=== PATIENT | male | born 1945 ===

== ENCOUNTER 2020-05-02 21:44 | Observation (INO) | payer OTHER, MEDICARE ==
[~2020-05-02] VITALS: Ht 172.7 cm; Wt 99.8 kg
[~2020-05-02 21:44] MED LIST: ALBU90OI INH; ASPI81CH PO; ATOR10 PO; CEPH250A PO; CHOL10002; CYCL10 PO; DIGO.125 PO; FISH1000 PO; FURO20 PO; GABA300 PO; HYDACE5 PO; LISI5 PO; LORA10ER; LOSHYD PO; MAGOXI400 PO; METO25 PO; NAPR250 PO; OMEP40CA12 PO; OXYC5 PO; RANI150 PO; SERT25 PO; Sen-O-Tab8.6 MG PO; TRAM50 PO; VENL150ER PO; VENL75; WARF5 PO; ZOLP5 PO
[2020-05-03 01:23] LABS: BASOPHILS ABSOLUTE AUTO 0.03 K/mm3 (0.00-0.23); BASOPHILS PERCENT AUTO 0 % (0-2); EOSINOPHILS ABSOLUTE AUTO 0.21 K/mm3 (0.00-0.68); EOSINOPHILS PERCENT AUTO 3 % (0-6); Hematocrit 42.9 % (37.0-53.0); Hemoglobin 13.3 g/dL (13.5-17.5); IMMATURE GRAN ABSOLUTE AUTO 0.01 K/mm3 (0.00-0.10); IMMATURE GRAN PERCENT AUTO 0 % (0-1); LYMPHOCYTES ABSOLUTE AUTO 2.18 K/mm3 (0.84-5.20); LYMPHOCYTES PERCENT AUTO 31 % (21-46); MONOCYTES ABSOLUTE AUTO 0.47 K/mm3 (0.16-1.47); MONOCYTES PERCENT AUTO 7 % (4-13); Mean Corpuscular HGB 26.3 pg (26.0-34.0); Mean Corpuscular Volume 85 fL (80-100); Mean Platelet Volume 11.4 fL (9.1-12.4); NEUTROPHILS ABSOLUTE AUTO 4.15 K/mm3 (1.96-9.15); NEUTROPHILS PERCENT AUTO 59 % (41-73); Platelet Count 195 K/mm3 (150-400); RDW Coefficient Variation 15.3 % (11.7-14.2); RDW Standard Deviation 47.4 fL (35.1-46.3); Red Blood Cell Count 5.06 M/mm3 (4.30-5.90); White Blood Cell Count 7.05 K/mm3 (4.00-11.30)
[2020-05-03 01:43] LABS: International Normalized Ratio 1.12; Prothrombin Time Results 11.9 Sec (9.7-11.5)
[2020-05-03 01:56] LABS: Alanine Aminotransfer (ALT/SGP 15 U/L (12-78); Albumin, Blood 2.9 g/dL (3.4-5.0); Albumin/Globulin Ratio 0.6 (0.8-1.8); Alk Phos 70 U/L (50-136); Anion Gap 5 mmol/L (6-16); Aspartate Aminotrans (AST/SGOT 22 U/L (12-37); Bilirubin, Total 0.4 mg/dL (0.1-1.0); Blood Urea Nitrogen 13 mg/dL (8-24); Bun/Creatinine Ratio 17.4 (12.0-20.0); CO2, Blood 28 mmol/L (21-32); Chloride, Blood 108 mmol/L (98-108); Creatinine, Blood 0.75 mg/dL (0.60-1.20); Digoxin (Lanoxin) 0.07 ug/mL (0.80-2.00); Globulin, Blood 4.7 g/dL (2.2-4.0); Glomerular Filtration Rate >60 (60-); Glucose, Blood 101 mg/dL (70-99); Potassium, Blood 3.5 mmol/L (3.5-5.5); Sodium, Blood 141 mmol/L (136-145); Total Protein, Blood 7.6 g/dL (6.4-8.2)
== END 2020-05-03 06:01 | disposition left against medical advice (07) ==
LOC: ER 21:44 → SURS 21:45
PROVIDERS: Emergency Medicine; ADMIT Family Medicine
DX: S73.005A Unspecified dislocation of left hip, initial encounter (principal); I10 Essential (primary) hypertension; I25.10 Atherosclerotic heart disease of native coronary artery without angina pectoris; E78.5 Hyperlipidemia, unspecified; J45.909 Unspecified asthma, uncomplicated; E11.9 Type 2 diabetes mellitus without complications; E78.00 Pure hypercholesterolemia, unspecified; F43.10 Post-traumatic stress disorder, unspecified; F17.210 Nicotine dependence, cigarettes, uncomplicated; D64.89 Other specified anemias; Z53.29 Procedure and treatment not carried out because of patient's decision for other reasons; Z91.14 Patient's other noncompliance with medication regimen; Z79.01 Long term (current) use of anticoagulants; Z79.899 Other long term (current) drug therapy; Z95.0 Presence of cardiac pacemaker; Z96.641 Presence of right artificial hip joint; Z79.82 Long term (current) use of aspirin; Z95.1 Presence of aortocoronary bypass graft; Z90.49 Acquired absence of other specified parts of digestive tract; X58.XXXA Exposure to other specified factors, initial encounter
CPT/HCPCS: 27265; 73502; 80053; 80162; 85025; 85610; 93005; 93010; 96374-59; 99284-25; J2704; J3010; J7030

== ENCOUNTER 2020-08-24 06:48 | Inpatient (IN) | payer OTHER, MEDICARE ==
[~2020-08-24] VITALS: Ht 170.2 cm; Wt 99.8 kg
[2020-08-24] MEDS ORDERED: ASPI81CH PO (06:59)
[2020-08-24 07:19] LABS: BASOPHILS ABSOLUTE AUTO 0.04 K/mm3 (0.00-0.23); BASOPHILS PERCENT AUTO 1 % (0-2); EOSINOPHILS ABSOLUTE AUTO 0.44 K/mm3 (0.00-0.68); EOSINOPHILS PERCENT AUTO 7 % (0-6); Hematocrit 45.5 % (37.0-53.0); Hemoglobin 14.3 g/dL (13.5-17.5); IMMATURE GRAN ABSOLUTE AUTO 0.01 K/mm3 (0.00-0.10); IMMATURE GRAN PERCENT AUTO 0 % (0-1); LYMPHOCYTES ABSOLUTE AUTO 1.73 K/mm3 (0.84-5.20); LYMPHOCYTES PERCENT AUTO 29 % (21-46); MONOCYTES ABSOLUTE AUTO 0.42 K/mm3 (0.16-1.47); MONOCYTES PERCENT AUTO 7 % (4-13); Mean Corpuscular HGB 26.4 pg (26.0-34.0); Mean Corpuscular HGB Conc 31.4 g/dL (31.5-36.5); Mean Corpuscular Volume 84 fL (80-100); Mean Platelet Volume 11.6 fL (9.1-12.4); NEUTROPHILS ABSOLUTE AUTO 3.28 K/mm3 (1.96-9.15); NEUTROPHILS PERCENT AUTO 55 % (41-73); Platelet Count 166 K/mm3 (150-400); RDW Coefficient Variation 15.4 % (11.7-14.2); RDW Standard Deviation 46.7 fL (35.1-46.3); Red Blood Cell Count 5.41 M/mm3 (4.30-5.90); White Blood Cell Count 5.92 K/mm3 (4.00-11.30)
[2020-08-24] MEDS ORDERED: LOSA50 PO (07:38)
[2020-08-24] MEDS ORDERED: VENL75ER PO (07:39)
[2020-08-24 07:43] LABS: Alanine Aminotransfer (ALT/SGP 22 U/L (12-78); Albumin, Blood 3.1 g/dL (3.4-5.0); Albumin/Globulin Ratio 0.6 (0.8-1.8); Alk Phos 80 U/L (50-136); Anion Gap 6 mmol/L (6-16); Aspartate Aminotrans (AST/SGOT 27 U/L (12-37); Bilirubin, Total 0.3 mg/dL (0.1-1.0); Blood Urea Nitrogen 22 mg/dL (8-24); CO2, Blood 25 mmol/L (21-32); Calcium, Blood 9.8 mg/dL (8.5-10.1); Chloride, Blood 107 mmol/L (98-108); Creatinine, Blood 0.88 mg/dL (0.60-1.20); Globulin, Blood 5.2 g/dL (2.2-4.0); Glomerular Filtration Rate >60 (60-); Glucose, Blood 132 mg/dL (70-99); Sodium, Blood 138 mmol/L (136-145); Total Protein, Blood 8.3 g/dL (6.4-8.2); Troponin I 0.124 ng/mL (0.000-0.040)
[2020-08-24 09:46] LABS: Influenza A, PCR NEGATIVE (NEGATIVE); Influenza B, PCR NEGATIVE (NEGATIVE); Resp Syncytial Virus, PCR NEGATIVE (NEGATIVE); SARS-Cov-2 (COVID-19) PCR, MMC NEGATIVE (NEGATIVE)
[2020-08-24] MEDS ORDERED: XARELTO20 MG PO (10:16)
[2020-08-24] MEDS ORDERED: MELA3 PO (10:18)
[2020-08-24] MEDS ORDERED: Crestor40 MG PO (10:18)
[2020-08-24] MEDS ORDERED: HYDROCODONE-AC1 EA11 PO (10:20)
--- NOTE | 2020-08-24 16:00 | NUR ---
PT ARRIVED TO ICU 1 FROM PRIVATE DUTY NURSE. PT IS A/O X4. HAS TO REMAIN FLAT DUE TO R FEMORAL ACCESS SITE. THERE IS A NAIMA DRESSING IN PLACE WITH CLEAR TEGADERM INTACT. SMALL DROP OF BLOOD ON DRESSING BUT IS CONTAINED AND HAS NOT GROWN IN SIZE. PT INSTRUCTED TO LAY FLAT WITHOUT FLEXION ON HIPS OR NECK. PT IS COMPLIANT. NO SIGN OF DISTRESS.
--- NOTE | 2020-08-24 16:59 | NUR ---
Echocardiogram completed.
--- NOTE | 2020-08-24 18:17 | NUR ---
PT ARRIVED FROM [facility]PERVISOR [employer]IC AT 1600. HAS R FEMORAL ACCESS SITE. SITE IS STABLE. CONTINUE TO REINFORCE TO NOT LIFT HEAD OR FLEX GROIN. DR. MATA CAME BY TO SEE PT AND STATES HE IS GETTING AN AICD AT 0700 TOMORROW. TO BE NPO AFTER MIDNIGHT AND NO BLOOD THINNERS. PT CONSENTED WITH DR. MATA. NO DISTRESS SINCE ARRIVING TO ICU AND NO V-TACH NOTED. CALL LIGHT IN REACH.
--- NOTE | 2020-08-24 18:53 | NUR ---
PT C/O PAIN IN L HIP THAT IS CHRONIC FROM HIP REPLACEMENT. ASKING FOR SOME SORT OF TRACTION DEVICE. WHEN EXPLAINING THAT THERE IS NOTHING LIKE THAT HERE PT BECOMES ANGRY AND STATES PHYSICAL THERAPY DOES. EDUCATED PT THAT THERE ARE NO PHYSICAL THERAPISTS HERE RIGHT NOW AND IT IS NOT POSSIBLE TO GET A DEVICE LIKE THAT. TRIED TO ASSIST PT WITH A BOOST IN BED BUT PT SITS UP IN BED AND SCOOTS SELF UP IN BED DESPITE EDUCATING PT THAT HE IS NOT SUPPOSED TO DO THAT WITH A FEMORAL GROIN ACCESS SITE. EDUCATED PT THAT PT CAN BLEED OUT IN MINUTES IF THAT ARTERY STARTS BLEEDING. PT STATES " I DON'T CARE". WILL NOT LAY FLAT OR FOLLOW DIRECTION TO KEEP STILL TO PREVENT FLEXION. PT IS GOING TO DO WHAT HE WANTS TO DO. PT ALSO STATES THAT IF HE WANTS TO GET UP AND WALK HE WILL DO THAT WELL. CALLED DR. MATA AND GOT AN ORDER FOR FENTANYL. FENTANYL GIVEN BUT PT IS STILL NON COMPLIANT WITH FLEXING GROIN OR SITTING UP IN BED. SITE IS STABLE AT THE MOMENT.
--- NOTE | 2020-08-24 19:35 | NUR ---
ASSUMPTION OF CARE RECEIVED REPORT FROM KARMEN LUND. ASSUMED CARE OF PATIENT. PATIENT SITTING UP AND LEANING OVER SIDE OF BED. EDUCATED PATIENT REGARDING LAYING FLAT STILL A LITTLE LONGER. PATIENT AGREED. ASSESSED RIGHT GROIN SITE, SOFT, NO BLEEDING, DRESSING INTACT. PATIENT A/O, VITAL STABE, CALL LIGHT IN REACH. WILL REVIEW ORDERS AND TREAT PRESCRIBED.
--- NOTE | 2020-08-25 07:28 | NUR ---
SHIFT SUMMARY PT WAS COOPERATIVE WITH CARE AT START OF SHIFT. PT STATED WANTING TO LEAVE AND GO OUTSIDE, PT WAS EDUCATED ABOUT THE HOSPITAL POLICY BEING UNABLE TO LEAVE THE HOSPITAL. PT BECAME INCREASINGLY UPSET STATING HE HAD PTSD AND NEEDED TO GO OUTSIDE. AROUND 0000 PT STATED HE WAS LEAVING AND WAS NOT GOING TO STAY AT THE HOSPITAL. HE STATED CALLING HIS TO COME PICK HIM UP. PT WAS EDUCATED ABOUT LEAVING AMA AND THE DANGERS. PT WAS REFUSING CARE AND PULLED OFF ALL MONITORS, PT WAS ADAMANT ABOUT REFUSING CARE, I WAS UNABLE TO OBTAIN ANY VITALS ON PT UNTIL AM. CALLED DR MATA AND HE CAME IN AND SPOKE WITH THE PT THIS AM AND PT WAS THEN AGREEABLE TO CARE AND UP COMING PROCEDURE. PT WAS UP AND WALKING AROUND ROOM ALL NIGHT. R GROIN SITE HAD NO PAIN, SWELLING, OR NEW DRAINAGE. OBTAINED VITALED WERE STABLE.
--- NOTE | 2020-08-25 10:00 | NUR ---
Patient back from labeling associate post ICD. Pressure dressing intact and no swelling. Patient alert and oriented on RA and sats >90%. I warmed his breakfast and he ate 100%. VSS continue to be stable.. Patient very thankful for his care. I also got him rootbeer and tolerated well. Right groin site C/D/I and no swelling or pain, clear op site
--- NOTE | 2020-08-25 12:00 | NUR ---
Patient resting after lunch which he ate 100%. Pressure dressing left upper chest intact. Right groin site C/D/I with clear op dressing, no swelling or pain at site. VSS, See EMR. Pulled am meds late and he took with lunch. Patient very thanksful for care. He asked about plan and stated 24 hours Abx and monitoring and home in am.
--- NOTE | 2020-08-25 14:25 | NUR ---
Patient wants to go home and i called Venkat Gaviria, Dr Turk, Dr Tena. They want me to talk with him and tell him the benifets of staying as i have several times, and he continues to sate they are just keeping me here for the money. Dr Turk came and saw patient and took pressure dressing and we applied a sling as ordered. Patient called for ride.He signed AMA paper work after reading to him. PCT is getting him ready for taking him out. He understands that Dr Tena wants continued monitoring and 24 hours of Abx. He still refuses to stay. I gave him Dr Sullivan pacecer discharge instructions and reviewed. He also stated that he will follow up with [facility] for psot pacer and wound check. [facility] office will foloow up per note on chart when returning from [facility].
--- NOTE | 2020-08-25 15:04 | NUR ---
Patient came to room and picked up patient. he was taken out in wheel chair and explained to about him not using left arm and to look at right groin side to see if he has any blood when get home and instructions if there is. Assisted into car and he went home POV
== END 2020-08-25 14:45 | disposition left against medical advice (07) | DRG 225 ==
LOC: ER 06:48 → ERHOLD 06:49 → ICUE 06:49
PROVIDERS: Emergency Medicine; ADMIT Internal Medicine
PROC: B2111ZZ Fluoroscopy of Multiple Coronary Arteries using Low Osmolar Contrast (ICD-10-PCS; 2020-08-24)
PROC: B3101ZZ Fluoroscopy of Thoracic Aorta using Low Osmolar Contrast (ICD-10-PCS; 2020-08-24)
PROC: B2131ZZ Fluoroscopy of Multiple Coronary Artery Bypass Grafts using Low Osmolar Contrast (ICD-10-PCS; 2020-08-24)
PROC: 4A023N7 Measurement of Cardiac Sampling and Pressure, Left Heart, Percutaneous Approach (ICD-10-PCS; 2020-08-24)
PROC: 02HK3KZ Insertion of Defibrillator Lead into Right Ventricle, Percutaneous Approach (ICD-10-PCS; principal; 2020-08-25)
PROC: 0JH609Z Insertion of Cardiac Resynchronization Defibrillator Pulse Generator into Chest Subcutaneous Tissue and Fascia, Open Approach (ICD-10-PCS; 2020-08-25)
PROC: 0JPT0PZ Removal of Cardiac Rhythm Related Device from Trunk Subcutaneous Tissue and Fascia, Open Approach (ICD-10-PCS; 2020-08-25)
PROC: 3E02340 Introduction of Influenza Vaccine into Muscle, Percutaneous Approach (ICD-10-PCS; 2020-08-25)
DX: I47.2 Ventricular tachycardia (principal); I25.10 Atherosclerotic heart disease of native coronary artery without angina pectoris; E78.5 Hyperlipidemia, unspecified; F43.10 Post-traumatic stress disorder, unspecified; Z95.1 Presence of aortocoronary bypass graft; F17.210 Nicotine dependence, cigarettes, uncomplicated; E66.3 Overweight; Z68.34 Body mass index [BMI] 34.0-34.9, adult; Z96.641 Presence of right artificial hip joint; M19.90 Unspecified osteoarthritis, unspecified site; G89.4 Chronic pain syndrome; F43.12 Post-traumatic stress disorder, chronic; Z20.822 Contact with and (suspected) exposure to COVID-19; Z23 Encounter for immunization
CPT/HCPCS: 0241U; 33233; 33249; 36415; 71045; 76937; 80053; 83690; 83735; 83880; 84443; 84484; 85025; 93005; 93010; 93306; 93459; 93567; 96376; 99152; 99153; 99285-25; A9270; C1721; C1769; C1781; C1894; C1895; G0378; J0690; J1644; J2250; J2270; J3010; J7030; J7040; J7050; Q2038; Q9967

== ENCOUNTER 2020-10-15 00:43 | Emergency (ER) | payer OTHER, MEDICARE ==
[~2020-10-15] VITALS: Ht 170.2 cm; Wt 99.8 kg
[~2020-10-15 00:43] MED LIST changes: +Crestor40 MG PO; +HYDROCODONE-AC1 EA11 PO; +LOSA50 PO; +MELA3 PO; +VENL75ER PO; +XARELTO20 MG PO
== END 2020-10-15 01:30 | disposition home or self-care (01) ==
LOC: ER 00:43
DX: M25.552 Pain in left hip (principal)
CPT/HCPCS: 99283; A9270

== ENCOUNTER 2020-10-15 12:41 | Emergency (ER) | payer OTHER, MEDICARE ==
[~2020-10-15] VITALS: Ht 170.2 cm; Wt 99.8 kg
== END 2020-10-15 16:58 | disposition home or self-care (01) ==
LOC: ER 12:41
DX: S73.005A Unspecified dislocation of left hip, initial encounter (principal); I25.810 Atherosclerosis of coronary artery bypass graft(s) without angina pectoris; E78.5 Hyperlipidemia, unspecified; I10 Essential (primary) hypertension; J45.909 Unspecified asthma, uncomplicated; Z95.1 Presence of aortocoronary bypass graft; Z79.01 Long term (current) use of anticoagulants; Z79.899 Other long term (current) drug therapy; W22.03XA Walked into furniture, initial encounter
CPT/HCPCS: 27266; 73501; 73502; 99283-25; J2704; J3010; J7030

== ENCOUNTER 2021-11-23 08:00 | Emergency (ER) | payer OTHER ==
[~2021-11-23] VITALS: Ht 172.7 cm; Wt 83.9 kg
[2021-11-23] MEDS ORDERED: Norco 5-325 Ta1 EACH PO (11:32)
== END 2021-11-23 12:44 | disposition home or self-care (01) ==
LOC: ER 08:00
DX: T84.021A Dislocation of internal left hip prosthesis, initial encounter (principal); Y79.2 Prosthetic and other implants, materials and accessory orthopedic devices associated with adverse incidents; I25.10 Atherosclerotic heart disease of native coronary artery without angina pectoris; I10 Essential (primary) hypertension; J45.909 Unspecified asthma, uncomplicated; E11.9 Type 2 diabetes mellitus without complications; F17.210 Nicotine dependence, cigarettes, uncomplicated; Z96.643 Presence of artificial hip joint, bilateral; Z95.0 Presence of cardiac pacemaker; Z95.1 Presence of aortocoronary bypass graft
CPT/HCPCS: 73501; 73502; J2704; J3010; J7030

== ENCOUNTER 2022-01-03 15:41 | Emergency (ER) | payer OTHER ==
[~2022-01-03] VITALS: Ht 170.2 cm; Wt 99.8 kg
[~2022-01-03 15:41] MED LIST changes: +Norco 5-325 Ta1 EACH PO
[2022-01-03] MEDS ORDERED: Norco 5-325 Ta1 EACH PO (22:04)
== END 2022-01-03 22:25 | disposition home or self-care (01) ==
LOC: ER 15:41
DX: T84.021A Dislocation of internal left hip prosthesis, initial encounter (principal); I25.10 Atherosclerotic heart disease of native coronary artery without angina pectoris; I10 Essential (primary) hypertension; E78.5 Hyperlipidemia, unspecified; J45.909 Unspecified asthma, uncomplicated; E11.9 Type 2 diabetes mellitus without complications; Z95.0 Presence of cardiac pacemaker; F17.210 Nicotine dependence, cigarettes, uncomplicated; Z95.1 Presence of aortocoronary bypass graft; X58.XXXA Exposure to other specified factors, initial encounter
CPT/HCPCS: 73502; J1885; J2704; J7030

== ENCOUNTER 2022-06-11 16:44 | Emergency (ER) | payer OTHER | END 2022-06-11 23:00 | disposition home or self-care (01) | DX: T84.021A Dislocation of internal left hip prosthesis, initial encounter (principal); Y79.8 Miscellaneous orthopedic devices associated with adverse incidents, not elsewhere classified; I25.10 Atherosclerotic heart disease of native coronary artery without angina pectoris; I10 Essential (primary) hypertension; J45.909 Unspecified asthma, uncomplicated; E11.9 Type 2 diabetes mellitus without complications; F17.210 Nicotine dependence, cigarettes, uncomplicated; Z96.643 Presence of artificial hip joint, bilateral; Z95.1 Presence of aortocoronary bypass graft; Z95.0 Presence of cardiac pacemaker ==

== ENCOUNTER 2022-10-20 08:57 | Inpatient (IN) | payer OTHER ==
[~2022-10-20] VITALS: Ht 167.6 cm; Wt 52.1 kg
[2022-10-20] MEDS ORDERED: VENL25 PO (09:18)
[2022-10-20 10:14] LABS: BASOPHILS ABSOLUTE AUTO 0.03 K/mm3 (0.00-0.23); BASOPHILS PERCENT AUTO 0 % (0-2); EOSINOPHILS PERCENT AUTO 0 % (0-6); Hemoglobin 20.4 g/dL (13.5-17.5); IMMATURE GRAN ABSOLUTE AUTO 0.07 K/mm3 (0.00-0.10); IMMATURE GRAN PERCENT AUTO 1 % (0-1); LYMPHOCYTES ABSOLUTE AUTO 0.99 K/mm3 (0.84-5.20); LYMPHOCYTES PERCENT AUTO 7 % (21-46); MONOCYTES ABSOLUTE AUTO 0.34 K/mm3 (0.16-1.47); MONOCYTES PERCENT AUTO 2 % (4-13); Mean Corpuscular HGB 28.2 pg (26.0-34.0); Mean Corpuscular Volume 83 fL (80-100); Mean Platelet Volume 11.6 fL (9.1-12.4); NEUTROPHILS ABSOLUTE AUTO 12.71 K/mm3 (1.96-9.15); NEUTROPHILS PERCENT AUTO 90 % (41-73); Platelet Count 201 K/mm3 (150-400); RDW Coefficient Variation 16.7 % (11.7-14.2); RDW Standard Deviation 42.5 fL (35.1-46.3); Red Blood Cell Count 7.23 M/mm3 (4.30-5.90); White Blood Cell Count 14.14 K/mm3 (4.00-11.30)
[2022-10-20 10:21] LABS: Albumin, Blood 4.4 g/dL (3.4-5.0); Albumin/Globulin Ratio 0.6 (0.8-1.8); Bilirubin, Total 1.9 mg/dL (0.1-1.0); Bun/Creatinine Ratio 52.5 (12.0-20.0); Calcium, Blood 10.8 mg/dL (8.5-10.1); Creatinine, Blood 2.44 mg/dL (0.60-1.20); Globulin, Blood 6.9 g/dL (2.2-4.0); Potassium, Blood 4.5 mmol/L (3.5-5.5); Total Protein, Blood 11.3 g/dL (6.4-8.2)
[2022-10-20 14:00] VITALS: BP 139/88
[2022-10-20 15:33] LABS: Bun/Creatinine Ratio 60.4 (12.0-20.0); Calcium, Blood 10.1 mg/dL (8.5-10.1); Creatinine, Blood 2.22 mg/dL (0.60-1.20)
--- NOTE | 2022-10-20 15:40 | NUR ---
ADMISSION NOTE: PT IS A POOR HISTORIAN. SASCHA ALEJANDRE, KEVON ATTEMPTED TO CALL AND BOTH NUMBERS DID NOT GO THROUGH. TRANSIT PLANNING MANAGER TRYING TO FIND CORRECT NUMBER FOR . SPEECH THERAPY CONSULTED WITH PATIENT. SPIRITUAL CARE ROUNDED ON PATIENT.IV FLUIDS STARTED. SPEECH THERAPY ORDERED A PUREE DIET, PT UNABLE TO KEEP ANYTHING DOWN, REGURGITATES ALL. PT DENIES NAUSEA/ABD PN. PT STATED NO DIFFICULTIES WHEN URINATING OR HAVING BOWEL MOVEMENTS. PT ON ROOM AIR. LUNGS SOUND CLEAR WITH FINE EXPIRATORY WHEEZES. TELE SHOWING SR WITH HR 70-80'S. BP STABLE. PERIPHERAL PULSES STRONG AND PRESENT. PT APPEARS CACHECTIC. BED ALARM ON, CALL LIGHT WITHIN REACH. PT CALM AND LAYING IN BED WATCHING TV.
[2022-10-20 16:12] VITALS: BP 130/85
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
--- NOTE | 2022-10-20 18:32 | NUR ---
END OF SHIFT NOTE: NO ACUTE CHANGES. SEE PREVIOUS NOTE FOR UPDATE. VITAL SIGNS REMAIN STABLE. NORMAL SALINE INFUSING PER EMAR. REMAINS ON RA. TELE CONTINUES TO SHOW SR. PT CONTINUES TO REGURGITATE ALL ORAL INTAKE. PT CALMLY RESTING IN BED WATCHING TV. BY TO ASSESS. PLAN FOR BARIUM SWALLOW IN AM. PT UPDATED ON PLAN. BED ALARM IN PLACE. WILL REPORT OFF TO NOC SHIFT.
--- NOTE | 2022-10-20 18:44 | NUR ---
THIS RN HAS REVIEWED AND AGREES WITH ALL HYDROELECTRIC MACHINERY MECHANIC HELPER DOCUMENTATION.
[2022-10-20 19:21] VITALS: BP 106/44
[2022-10-20 22:36] LABS: Source, Urine Clean Catch
[2022-10-20 22:39] LABS: Appearance, Urine Clear (Clear); Bilirubin, Urine Neg (Neg); Blood, Urine Neg (Neg); Color, Urine Yellow (P-Yellow); Glucose Qualitative, Urine Neg (Neg); Ketones, Urine Neg (Neg); Leukocyte Esterase, Urine Neg (Neg); Nitrite, Urine Neg (Neg); Protein, Urine 2+ (Neg); Urobilinogen, Urine NORM (Normal)
[2022-10-20 22:58] LABS: Red Blood Cells, Urine 0-2 /hpf (0-2); White Blood Cells, Urine 0-2 /hpf (0-5)
[2022-10-20 22:59] LABS: Bacteria Few /hpf; Squamous Epithelial Cells Rare /hpf (Few)
--- NOTE | 2022-10-20 23:11 | NUR ---
SPOKE WITH DR BARILLAS REGARDING URINE LOOKING VERY CLOUDY WITH CHUNKY WHITE SEDIMENY, PT GIVEN CLEAN URINAL FOR UA AND CULTURE IF INDICATED, URINE WAS THEN CLEAR, YELLOW, I BELIEVE PT USED THE PREVIOUS DIRTY URINAL TO SPIT UP IN AFTER DRINKING MILK CAUSING THE CONFUSION, EDUCATED PT AND WILL CONTINUE TO MONITOR
[2022-10-20 23:20] VITALS: BP 115/74
[2022-10-21 03:22] VITALS: BP 121/74
[2022-10-21 05:26] LABS: BASOPHILS ABSOLUTE AUTO 0.02 K/mm3 (0.00-0.23); BASOPHILS PERCENT AUTO 0 % (0-2); EOSINOPHILS ABSOLUTE AUTO 0.02 K/mm3 (0.00-0.68); EOSINOPHILS PERCENT AUTO 0 % (0-6); Hematocrit 51.9 % (37.0-53.0); IMMATURE GRAN ABSOLUTE AUTO 0.07 K/mm3 (0.00-0.10); IMMATURE GRAN PERCENT AUTO 0 % (0-1); LYMPHOCYTES PERCENT AUTO 6 % (21-46); MONOCYTES ABSOLUTE AUTO 0.78 K/mm3 (0.16-1.47); MONOCYTES PERCENT AUTO 5 % (4-13); Mean Corpuscular HGB 27.6 pg (26.0-34.0); Mean Corpuscular HGB Conc 32.8 g/dL (31.5-36.5); Mean Corpuscular Volume 84 fL (80-100); Mean Platelet Volume 10.4 fL (9.1-12.4); NEUTROPHILS ABSOLUTE AUTO 15.59 K/mm3 (1.96-9.15); NEUTROPHILS PERCENT AUTO 89 % (41-73); Platelet Count 138 K/mm3 (150-400); RDW Coefficient Variation 14.6 % (11.7-14.2); RDW Standard Deviation 43.6 fL (35.1-46.3); Red Blood Cell Count 6.17 M/mm3 (4.30-5.90); White Blood Cell Count 17.48 K/mm3 (4.00-11.30)
[2022-10-21 06:03] LABS: Albumin, Blood 3.2 g/dL (3.4-5.0); Albumin/Globulin Ratio 0.6 (0.8-1.8); Bilirubin, Total 1.2 mg/dL (0.1-1.0); Bun/Creatinine Ratio 62.1 (12.0-20.0); Calcium, Blood 9.4 mg/dL (8.5-10.1); Creatinine, Blood 1.82 mg/dL (0.60-1.20); Globulin, Blood 5.3 g/dL (2.2-4.0); Phosphorus, Blood 3.3 mg/dL (2.5-4.9); Potassium, Blood 3.6 mmol/L (3.5-5.5); Total Protein, Blood 8.5 g/dL (6.4-8.2)
--- NOTE | 2022-10-21 06:06 | NUR ---
END OF SHIFT PLEASANT FELLOW WAS AWAKE ALL NIGHT ASIDE FROM 2 HR NAP, DRANK COPIOUS AMOUNTS OF MILK, JUICE AND WATER WHICH HE REGURGITATED INTO EMESIS BAGS, NS AT 150 ML/HR , USING URINAL , VSS, AFEBRILE
[2022-10-21 09:03] VITALS: BP 117/91
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
[2022-10-21 17:56] VITALS: BP 118/73
--- NOTE | 2022-10-21 19:33 | NUR ---
SHIFT SUMMARY TOOK OVER CARE AT 1300, PT A&OX3/FORGETFUL/PLEASANT & COOPERATIVE WITH CARE. NPO, ORAL CARE Q1H. BEDREST/MOD ASSIST. CBGS Q6 CNI. MVI INFUSING @ 60 MLS/HR AND LR @ 150 MLS/HR. POWERGLIDE AND IV IN RUE. REPORT TO JENISE LUND.
[2022-10-21 19:54] VITALS: BP 125/73
[2022-10-21 23:45] VITALS: BP 117/68
[2022-10-22 04:45] VITALS: BP 110/66
[2022-10-22 05:04] LABS: BASOPHILS ABSOLUTE AUTO 0.01 K/mm3 (0.00-0.23); BASOPHILS PERCENT AUTO 0 % (0-2); EOSINOPHILS ABSOLUTE AUTO 0.08 K/mm3 (0.00-0.68); EOSINOPHILS PERCENT AUTO 1 % (0-6); Hematocrit 42.4 % (37.0-53.0); IMMATURE GRAN ABSOLUTE AUTO 0.02 K/mm3 (0.00-0.10); IMMATURE GRAN PERCENT AUTO 0 % (0-1); LYMPHOCYTES ABSOLUTE AUTO 1.35 K/mm3 (0.84-5.20); LYMPHOCYTES PERCENT AUTO 14 % (21-46); MONOCYTES ABSOLUTE AUTO 0.67 K/mm3 (0.16-1.47); MONOCYTES PERCENT AUTO 7 % (4-13); Mean Corpuscular HGB 27.8 pg (26.0-34.0); Mean Corpuscular Volume 84 fL (80-100); Mean Platelet Volume 11.5 fL (9.1-12.4); NEUTROPHILS ABSOLUTE AUTO 7.65 K/mm3 (1.96-9.15); NEUTROPHILS PERCENT AUTO 78 % (41-73); Platelet Count 109 K/mm3 (150-400); RDW Coefficient Variation 14.6 % (11.7-14.2); Red Blood Cell Count 5.04 M/mm3 (4.30-5.90); White Blood Cell Count 9.78 K/mm3 (4.00-11.30)
[2022-10-22 05:46] LABS: Alanine Aminotransfer (ALT/SGP 13 U/L (12-78); Albumin, Blood 2.7 g/dL (3.4-5.0); Albumin/Globulin Ratio 0.6 (0.8-1.8); Alk Phos 68 U/L (50-136); Anion Gap 5 mmol/L (6-16); Aspartate Aminotrans (AST/SGOT 19 U/L (12-37); Bilirubin, Total 0.9 mg/dL (0.1-1.0); Blood Urea Nitrogen 85 mg/dL (8-24); Bun/Creatinine Ratio 67.5 (12.0-20.0); CO2, Blood 29 mmol/L (21-32); Calcium, Blood 9.2 mg/dL (8.5-10.1); Chloride, Blood 107 mmol/L (98-108); Creatinine, Blood 1.26 mg/dL (0.60-1.20); Globulin, Blood 4.4 g/dL (2.2-4.0); Glomerular Filtration Rate 60 (60-); Glucose, Blood 117 mg/dL (70-99); Magnesium, Blood 2.9 mg/dL (1.6-2.4); Phosphorus, Blood 2.2 mg/dL (2.5-4.9); Potassium, Blood 3.7 mmol/L (3.5-5.5); Sodium, Blood 141 mmol/L (136-145); Total Protein, Blood 7.1 g/dL (6.4-8.2); Triglycerides 126 mg/dL (30-160)
--- NOTE | 2022-10-22 06:07 | NUR ---
SHIFT SUMMARY ASSUMED CARE OF PT AT 1900. PT IS A/OX2-3. HEART SOUNDS REGULAR. LUNG SOUNDS CLEAR. PT COUGHED UP LARGE AMOUNTS OF THICK YELLOW/BROWN SPUTUM. PT WAS A 1P ASSIST TO WHEELCHAIR FOR CT SCAN. PT USED URINAL T/O THE NIGHT. PT WAS VERY UPSET ABOUT NOT GETTING PO FLUIDS. PT DID NOT UNDERSTAND CLINICAL ILLNESS BY EXAMPLE OF SAYING "WELL IF I WAS IN [place] THEY WOULD BE LETTING ME DRINK ALL THE WATER AND FLUSH OUT THE ILLNESS". PT DID NOT SLEEP WELL AND CONTINUED TO TELL STAFF "ITS LIKE IM BACK IN THE " WHEN TOLD HE CANT HAVE WATER.
[2022-10-22 07:42] VITALS: BP 110/69
--- NOTE | 2022-10-22 11:00 | NUR ---
TROUBLE OPERATOR GABE REQUESTED RECORDS FROM [facility] PER DR MARTINEZ'S REQUEST.
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
[2022-10-22 13:47] VITALS: BP 115/80
--- NOTE | 2022-10-22 14:26 | NUR ---
ASSUMED CARE OF PATIENT AT 0700. NO ACUTE EVENTS. PATIENT KEPT STRICT NPO, WILL CONTINUOUSLY ASK ANY & ALL STAFF FOR FOOD & DRINK. FREQUENTLY REMINDED PATIENT OF NPO STATUS & WHY, APPEARS PATIENT IS UNABLE TO PROCESS/UNDERSTAND. PATIENT CHANGED TO MED STATUS, REPORT CALLED TO KEVON GOLDEN. TRASNFERRING PATIENT & BELONGINGS VIA W/C AT THIS TIME.
[2022-10-22 14:46] VITALS: BP 127/78
--- NOTE | 2022-10-22 14:52 | NUR ---
ASSUMED CARE OF PATIENT UPON HIS ARRIVAL FROM PCU 07 VIA W/C AT 1445. HE IS A&O X 2, HAD TO REITERATE STRICT NPO INSTRUCTIONS AND RATIONALE FOR SAME, BUT PT INSISTS HE IS ALLOWED WATER AND "MICHAEL CRACKERS AND JELLY." GAVE HIM SOME LEMON SWABS TO KEEP HIS MOUTH MOIST. CALL LIGHT IS IN REACH, INSTRUCTED ON ITS USE. BELONGINGS AT BEDSIDE. EDUCATED PT ABOUT EGD PROCEDURE TO TAKE PLACE TOMORROW, AND THE POSSIBILITY OF HIS BEING ABLE TO EAT AFTER PROCEDURE. DENIES PAIN AT THIS TIME.
[2022-10-22 15:13] VITALS: BP 126/83
--- NOTE | 2022-10-22 18:14 | NUR ---
SHIFT SUMMARY: NO ACUTE EVENTS. USES CALL LIGHT FREQUENTLY, REPEATEDLY ASKS FOR WATER AND SNACKS. GAVE LEMON SWABS FOR MOUTH MOISTURE. A&O X 2, VERY FORGETFUL. DR. AHN CAME TO BEDSIDE TO SEE PATIENT, PLAN IS FOR EGD TOMORROW MORNING, LIKELY BETWEEN 080-11.
[2022-10-22 19:27] VITALS: BP 142/81
--- NOTE | 2022-10-23 04:27 | NUR ---
SUMMARY: PATIENT AGITATED AT START OF SHIFT DUE TO NPO STATUS. PATIENT IS VERY CONFUSED AND WAS REORIENTED MULTIPLE TIMES. REMINDED PATIENT THAT HE WAS HAVING A PROCEDURE IN THE MORNING. PATIENT BRUSHED HIS TEETH ABOUT 3 TIMES BEFORE BED. VOIDS IN URINAL. CLINIMIX INFUSION RUNNING CONT. VSS. PATIENT APPEARS VERY MALNOURISHED. PATIENT ABLE TO AMBULATE WITH SBA. WENT FOR A WALK IN HALLWAY. AOX1. CALL LIGHT IN REACH. BED ALARM ON.
[2022-10-23 05:24] VITALS: BP 94/56
[2022-10-23 06:07] LABS: Bun/Creatinine Ratio 65.5 (12.0-20.0); Calcium, Blood 9.2 mg/dL (8.5-10.1); Creatinine, Blood 0.99 mg/dL (0.60-1.20); Magnesium, Blood 2.6 mg/dL (1.6-2.4); Phosphorus, Blood 2.3 mg/dL (2.5-4.9); Potassium, Blood 3.8 mmol/L (3.5-5.5)
[2022-10-23 07:26] VITALS: BP 99/65
[2022-10-23 15:47] VITALS: BP 108/69
--- NOTE | 2022-10-23 18:28 | NUR ---
SHIFT SUMMARY PT A&OX2 AND COOPERATIVE OF CARE. PT WAS NOT ABLE TO GO FOR SCOPE TODAY D/T ANESTHESIOLOGIST WANTING OK FROM AUTO SERVICER. PT HAS BEEN, AT TIMES, IRRITABLE ABOUT BEING NPO STILL. PT AMBULATED IN LUZ AND TOLERATED WELL, PT WAS ABLE TO SIT BY WINDOW FOR A BIT. PT LONELY AND RESPONDS WELL WHEN STAFF SIT AND LISTEN FOR A TIME. FAMILY AT BEDSIDE IN EVENING. BED ALARM ON. CALL LIGHT IN REACH.
[2022-10-23 19:24] VITALS: BP 109/76
[2022-10-24] VITALS (9 sets, daily range): BP systolic 103–121; BP diastolic 62–73
[2022-10-24 05:29] LABS: Bun/Creatinine Ratio 57.4 (12.0-20.0); Calcium, Blood 9.2 mg/dL (8.5-10.1); Creatinine, Blood 0.94 mg/dL (0.60-1.20); Magnesium, Blood 2.5 mg/dL (1.6-2.4); Phosphorus, Blood 2.7 mg/dL (2.5-4.9); Potassium, Blood 4.1 mmol/L (3.5-5.5)
--- NOTE | 2022-10-24 05:41 | NUR ---
SUMMARY: NO ACUTE EVENTS OVERNIGHT. PATIENT REMAINED NPO THROUGHOUT NIGHT. VSS. Q6 GLUCOSE STABLE. POWERGLIDE IN PLACE WITH CLINIMIX INFUSING. PLAN FOR PATIENT TO HAVE EGD THIS MORNING. PATIENT CONFUSED AOX1. EASILY REDIRECTABLE TOOK PATIENT FOR WALK IN HALLWAY AT START OF SHIFT. BED ALARM ON PATIENT WILL GET UP AND TRY TO DRINK WATER WHILE HE IS NPO BUT PATIENT IS PRETTY STEADY ON HIS FEET OTHERWISE.
--- NOTE | 2022-10-24 13:26 | NUR ---
Supportive visit this afternoon. Spoke with PT Garry who reports recommendations are for home health. Pt resting in bed upon arrival. Pt denies pain at this time. Offered therapeutic listening as Pt expresses frustrations and concerns regarding his . He reports wanting to go home or have his at bedside. Continued therapeutic listening and validated concerns. Spoke with Primary RN Julee and discussed case. Julee reports calling phone number listed but is invalid phone number. Called and spoke with Pt's son Baljinder (Pt's son). Provided update and reviewed plan of care. Relayed Pt's request regarding seeing his . Baljinder reports bringing in Pt's to see him yesterday. He reports working and is difficult getting spouse in to see Pt. Baljinder does confirm that he and his are caring for Pt's spouse. Continued supportive conversation and answered questions. Deffered some questions for [employer]n Dried Salt and RN Caremanager. Baljinder expresses appreciation and report no other concerns at this time. Palliative Care will remain available
--- NOTE | 2022-10-24 14:41 | NUR ---
Case Conference Note Received copy of Pt's Advanced Directive from the [place]. AD shows Pt appointing his spouse as primary international sales representative and his son Wily as secondary respresentative. As Pt's suffers from advanced dementia, son Wily is officaly the decision maker. Delivered copy of AD to medical records via hosptial tube system, and placed copy of AD in Pt's paper chart. Discussed case with Hospital Pump Erector Helper Fabiola and RN Kwasi Holden. Palliative Care will remain available
--- NOTE | 2022-10-24 16:12 | NUR ---
Arianealannaramin is sitting at the end of the medina by the window. He talks about motorcycles, scuba diving and his love of being on helicoptors and airplanes. I provide prayer for patient upon request just prior to his procedure. Patient voices his appreciation for the conversation and the prayer. I will continue to remain available to patient and family.
--- NOTE | 2022-10-24 17:10 | NUR ---
10/24/22 0786 Lali Andrews History, Chart, Medications and Allergies reviewed before start of procedure. MONITOR INTACT WITH CONTINUOUS PULSE OXIMETRY, CONTINUOUS END TITAL CO2, AND INTERMITTENT BLOOD PRESSURE. 3-LEAD EKG REVIEWED WITH PHYSICIAN PRIOR TO START OF PROCEDURE. Bite Block Placed LIDOCAINE 4% LIDO NEB TREATEMENT PRIOR TO PROCEDURE.
--- NOTE | 2022-10-24 17:30 | NUR ---
PATIENT IS ALERT AND ORIENTED WITH SOME CONFUSION ON WHY HE IS HERE AND WHY HE CANNOT EAT. PATIENT HAS BEEN STRICT NPO. HE IS OUT OF THE ROOM AT THIS TIME FOR THE EGD. PATIENT WORKED WITH OT AND PT TODAY. SPOKE WITH PALLATIVE CARE AND SPIRITUAL CARE.
[2022-10-25] VITALS (9 sets, daily range): BP systolic 104–126; BP diastolic 65–80
--- NOTE | 2022-10-25 00:43 | NUR ---
NURSE ASSISTED PATIENT INTO RESTROOM TO USE TOILET. PATIENT CALLED OUT TO NURSE WHILE HE WAS SITTING STATING THAT HIS L HIP POPPED OUT. PATIENT L LEG DID APPEAR SHORTED THAN HIS RIGHT AND THERE WAS A PROTRUSION ON L SIDE. STAFF WAS ABLE TO LIFT PATIENT AND PLACE HIM BACK IN BED WITHOUT HIM BEARING WEIGHT ON L LEG. ONCE PATIENT WAS IN BED CALLED MD. RECIEVED ORDER FOR XRAY AND PAIN MEDS. PULSE PRESENT IN PATIENT LLE. PATIENT STILL ABLE TO MOVE TOES. MEDICATED FOR PAIN AND XRAY CAME TO BEDSIDE. PATIENT RESTING NOW IN BED.
--- NOTE | 2022-10-25 05:35 | NUR ---
SUMMARY: PATIENT DISLOCATED HIP WHILE SITTING ON THE TOILET TRYING TO WIPE HIS BEHIND LAST NIGHT. XRAY TAKEN. OTHRO CONSULTED. VSS. OVERNIGHT. STILL NPO AFTER EGD YESTERDAY. PATIENT CONSTANTLY BEGGING STAFF FOR FOOD AND WATER. PATIENT WAS VERY STEADY ON HIS FEET BEFORE ISSUES WITH HIS HIP WAS WALKING IN HALLWAYS WITH NURSE. CLINIMIX INFUSING. AOX1-2. BED ALARM NOW ON BEDREST.
--- NOTE | 2022-10-25 08:34 | NUR ---
family PT SON, KAYE MORA. CALLED TO NOTIFY OF PT HIP DISLOCATION AND PENDING SURGERY. PT IS DEMENTED THE PT. PLEASE CALL KAYE VARGAS CONTINUE POC.
--- NOTE | 2022-10-25 11:13 | NUR ---
DAY SURGERY PT TRANSFERED TO [facility] WITH SLIDER SHEET AND 3 ASSIST. PT TOLERATED WELL. CONTINUE POC.
--- NOTE | 2022-10-25 11:22 | NUR ---
PT HAS POWERGLIDE TO RIGHT UPPER ARM THAT FLUSHES WELL AND FLOWS TO GRAVITY.
--- NOTE | 2022-10-25 11:27 | NUR ---
PT BROUGHT FROM FLOOR TO DAY SURGERY FOR PROCEDURE.
--- NOTE | 2022-10-25 11:30 | NUR ---
Case Conference Note Spoke with Dr Gonzales and discussed case. Dr Gonzales had a discussion with Pt's son who is Pt's decision maker. Plan is to move to comfort care and Pt will also have procedure today as a comfort measure. Placed comfort care order per V/O from Dr Gonzales. Dr Gonzales will order comfort medications. Plan will be to D/C some of the nursing orders after procedure. Relayed information to Primary RN Aezb. Palliative Care will remain available
--- NOTE | 2022-10-25 11:59 | NUR ---
10/25/22 1159 Poornima Whittington NO ANTIBIOTICS ORDERED PER DR GATICA.
--- NOTE | 2022-10-25 13:00 | NUR ---
POST OP RETURN FROM DAY SURGERY. LEFT LE CMS WNL. LEFT KNEE IMMOBILIZER ON. PT AWAKE AND LAERT. MEDCIATED FOR PAIN WITH FENTANYL 50 MCG. HE HAD NOT RECEIVED ANYTHING POST PROCEDURE. CONTINUE POC.
--- NOTE | 2022-10-25 16:03 | NUR ---
URINAL PT COMFORT CARE. PT AWAKE. WANTED WHOLE MILK. PLACED IN CUP WITH STRAW PER HIS DIRECTION. HE THEN POURED IT INTO HIS URINAL AND DRANK. DR MARTINEZ CALLED. CONTINUE POC.
--- NOTE | 2022-10-25 18:35 | NUR ---
NOTE PT RESTING QUIETLY. LEFT LE WITH KNEE BRACE ON. LEFT TOE POINTING UP. ATIVAN 1MG EFFECTIVE FOR REST. RESP EVEN AND UNLABORED. PT COMFORT CARE. PT HAS AN AICD LEFT KELECHI THAT WAS REVISED IN 2020. WILL NEED TO TALK WITH TOMORROW MD TO ADDRESS AICD FUNCTION. CONTINUE POC.
--- NOTE | 2022-10-26 04:09 | NUR ---
SHIFT SUMMARY; NO ACUTE CHANGES OVERNIGHT. THE PT HAS BEEN SLEEPING FOR THE MAJORITY OF THE NIGHT. THE PT WAS VERY TIRED TO BEGIN WITH AND THEN THE NIGHT PROGRESSED THE PT BECAME MORE ALERT. THE PT EXPRESSES FRUSTRATION WITH HAVING TO WEAR A IMMOBOLIZER ON HIS L KNEE. THE PT HAS DENIED ANY PAIN THIS EVENING. THE PT HAS BEEN CONTINENT T/O THE NIGHT. THE PT IS A 1 ASSIST TO THE BSC. THE PT DENIES ANY SOB. CURRENTLY THE PT IS SITTING UP IN BED COLORING. THE BED IS IN THE LOW POSITION AND THE CALL LIGHT IS AT BEDSIDE. THE PT IS COMFORT CARE STATUS.
--- NOTE | 2022-10-26 12:15 | NUR ---
Emotional support visit this afternoon. Pt is sitting in the hallway near the windows at the end of the special care medina. Visited with Wily and allowed him to talk about his life and family. He wants to go home and wants to eat. Emotional support given. Pt is currently on comfort care and is awaiting placement for hospice services.
[2022-10-26 13:11] LABS: A/G RATIO 0.8 (0.7-1.7); ALBUMIN 3.1 g/dL (2.9-4.4); ALPHA-1-GLOBULIN 0.3 g/dL (0.0-0.4); ALPHA-2-GLOBULIN 0.7 g/dL (0.4-1.0); BETA GLOBULIN 1.2 g/dL (0.7-1.3); GAMMA GLOBULIN 1.9 g/dL (0.4-1.8); M-SPIKE Not Observed g/dL (Not Observed); PROTEIN, TOTAL, SERUM 7.1 g/dL (6.0-8.5)
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
--- NOTE | 2022-10-26 16:23 | NUR ---
BEATRIZ MAS RN FROM [facility] HERE TO TURN AICD FUNCTION OFF. CONTINUE POC.
--- NOTE | 2022-10-26 16:25 | NUR ---
Turned "OFF" VT/VF ICD therapies per Dr Gonzales order
--- NOTE | 2022-10-26 16:42 | NUR ---
Spiritual care visit conducted. Patient is resting. I ask him how he is doing and he shakes his head to indicate that he is not well. He tell him he still looks like a rockstar and he tells me that I am a liar. I ask him if he would like me to say a prayer for him and he says, "please do." I provide prayer. Patient smiles and thanks me and drifts back to sleep.
--- NOTE | 2022-10-27 04:04 | NUR ---
SUMMARY: NO ACUTE EVENTS OVERNIGHT. PATIENT AOX1. WENT FOR A WALK BEFORE BED. PATIENT REQUESTED MEDS TO HELP HIM SLEEP. GAVE ATIVAL AND NALLELY 5MG. PATIENT DID NOT SLEEP AT FIRST. BECAME ANXIOUS AND WANTED IMMOBLIIZER TAKEN OFF GAVE ATIVAN AGAIN. PATIENT COOPERATIVE WITH CARE. VERY FORGETFUL. FREQUENTLY REQUESTING FOOD AND SODA THAT HE IMMEDIATELY VOMITS AFTER CONSUMING.
--- NOTE | 2022-10-27 11:30 | NUR ---
Received a call from ALEJANDRO to have pt's son, Wily Robert, fill out a POLST form prior to pt's discharge to the [facility] on hospice services. Went to room to discuss the POLST. Pt's son and are at the bedside. Son requested to speak with this bid writer outside the room. Discussed POLST form. Wily Robert states that he is in agreement with DNR, comfort measures. He gave his verbal consent however declined to sign the POLST form. Dr. Rivas signed form. Original POLST plus a copy given to CM. Copy sent to medical records.
[2022-10-27 12:12] LABS: SARS-Cov-2 (COVID-19) PCR, MMC Negative (NEGATIVE)
[2022-10-27] MEDS ORDERED: MORP20L PO (12:55)
[2022-10-27] MEDS ORDERED: LORA1 PO (12:55)
--- NOTE | 2022-10-27 14:10 | NUR ---
DISCHARGE SUMMARY PATIENT IS ALERT AND ORIENTED TO SELF AND FAMILY THAT VISITED. PATIENT IS BEING DISCHARGED TO [facility]. PATIENT HAS HAD NO ACUTE EVENTS THIS SHIFTS. PATIENT IS COMFORT CARE. PATIENT HAS NOT REQUIRED AND MEDICATING FOR AGITATION OR PAIN THIS SHIFT. PATIENT IS PICKED UP BY TRANSPORT. NURSE TO NURSE REPORT TO [facility]ITA WAS GIVEN.
== END 2022-10-27 14:04 | disposition hospice, home (50) | DRG 391 ==
LOC: ER 08:57 → MEDS 11:53 → PCU 11:53 → MEDS 10-22 14:54 → ENPENDDIS 10-27 11:56 → MEDS 10-27 14:04
PROVIDERS: Emergency Medicine; Family Medicine; Internal Medicine; Internal Medicine Gastroenterology; Student in an Organized Health Care Education/Training Program; ADMIT Internal Medicine
PROC: 0D758ZZ Dilation of Esophagus, Via Natural or Artificial Opening Endoscopic (ICD-10-PCS; principal; 2022-10-24 16:30)
PROC: 0SSBXZZ Reposition Left Hip Joint, External Approach (ICD-10-PCS; 2022-10-25)
PROC: 0S9B3ZZ Drainage of Left Hip Joint, Percutaneous Approach (ICD-10-PCS; 2022-10-25)
PROC: BQ11ZZZ Fluoroscopy of Left Hip (ICD-10-PCS; 2022-10-25)
DX: K22.0 Achalasia of cardia (principal); E43 Unspecified severe protein-calorie malnutrition; I71.02 Dissection of abdominal aorta; T84.021A Dislocation of internal left hip prosthesis, initial encounter; N17.9 Acute kidney failure, unspecified; R64 Cachexia; E87.1 Hypo-osmolality and hyponatremia; F03.918 Unspecified dementia, unspecified severity, with other behavioral disturbance; F11.20 Opioid dependence, uncomplicated; Z68.1 Body mass index [BMI] 19.9 or less, adult; K22.2 Esophageal obstruction; Z66 Do not resuscitate; Z51.5 Encounter for palliative care; R62.7 Adult failure to thrive; I25.10 Atherosclerotic heart disease of native coronary artery without angina pectoris; K80.20 Calculus of gallbladder without cholecystitis without obstruction; F32.A Depression, unspecified; E11.9 Type 2 diabetes mellitus without complications; R13.10 Dysphagia, unspecified; D58.2 Other hemoglobinopathies; R74.8 Abnormal levels of other serum enzymes; I10 Essential (primary) hypertension; E88.09 Other disorders of plasma-protein metabolism, not elsewhere classified; E87.8 Other disorders of electrolyte and fluid balance, not elsewhere classified; D72.829 Elevated white blood cell count, unspecified; M19.90 Unspecified osteoarthritis, unspecified site; Z20.822 Contact with and (suspected) exposure to COVID-19; F43.10 Post-traumatic stress disorder, unspecified; E78.5 Hyperlipidemia, unspecified; E86.0 Dehydration; M75.00 Adhesive capsulitis of unspecified shoulder; G56.00 Carpal tunnel syndrome, unspecified upper limb; R63.0 Anorexia; I25.5 Ischemic cardiomyopathy; D63.8 Anemia in other chronic diseases classified elsewhere; J44.9 Chronic obstructive pulmonary disease, unspecified; E86.1 Hypovolemia; W06.XXXA Fall from bed, initial encounter; Z79.4 Long term (current) use of insulin; Z91.148 Patient's other noncompliance with medication regimen for other reason; Z86.79 Personal history of other diseases of the circulatory system; Z95.0 Presence of cardiac pacemaker; Z90.49 Acquired absence of other specified parts of digestive tract; Z98.890 Other specified postprocedural states; Z95.1 Presence of aortocoronary bypass graft; Z79.899 Other long term (current) drug therapy; Z87.891 Personal history of nicotine dependence
CPT/HCPCS: 36415; 70490; 71250; 73502; 74176; 74230; 80048; 80053; 81001; 82378; 82947; 83690; 83735; 84100; 84165; 84478; 84484; 85025; 92610; 92611; 93005; 93010; 93283; 93306; 94762; 96374; 97110; 97116; 97130; 97162; 97165; 97168; 97535; 99285-25; A9270; C1726; C1751; J1100; J1644; J2001; J2060; J2370; J2405; J2704; J3010; J7030; J7120; U0004

== ENCOUNTER 2022-11-05 23:55 | Emergency (ER) | payer OTHER ==
[~2022-11-05] VITALS: Ht 172.7 cm; Wt 54.4 kg
[~2022-11-05 23:55] MED LIST changes: +LORA1 PO; +MORP20L PO; +VENL25 PO
[2022-11-06 04:00] VITALS: BP 115/81
== END 2022-11-06 05:12 | disposition home or self-care (01) ==
LOC: ER 23:55
DX: T84.021A Dislocation of internal left hip prosthesis, initial encounter (principal); X58.XXXA Exposure to other specified factors, initial encounter; Z79.899 Other long term (current) drug therapy; I25.10 Atherosclerotic heart disease of native coronary artery without angina pectoris; F43.10 Post-traumatic stress disorder, unspecified; E78.5 Hyperlipidemia, unspecified; J45.909 Unspecified asthma, uncomplicated; F17.210 Nicotine dependence, cigarettes, uncomplicated
CPT/HCPCS: 27265; 73501; 73502; 99152; 99153; 99284-25; J2704; J7030

== ENCOUNTER 2022-11-16 15:10 | Emergency (ER) | payer OTHER ==
[~2022-11-16] VITALS: Ht 165.1 cm; Wt 72.6 kg
[2022-11-16] MEDS ORDERED: Acetaminophen650 M1 PO (15:25)
[2022-11-16] MEDS ORDERED: FURO20 PO (15:26)
[2022-11-16] MEDS ORDERED: ONDA4ODT MM (15:28)
[2022-11-16] MEDS ORDERED: PRAZ1 PO (15:28)
[2022-11-16] MEDS ORDERED: DURAMORPH 11 MG/1 M1 SC (15:28)
[2022-11-16] MEDS ORDERED: TRANSDERM-SCOP1 EA13 TD (15:29)
[2022-11-16] MEDS ORDERED: TRAZ50 PO ×2 (15:29→15:30)
[2022-11-16 17:45] VITALS: BP 133/78
== END 2022-11-16 18:40 | disposition home or self-care (01) ==
LOC: ER 15:10
DX: T84.021A Dislocation of internal left hip prosthesis, initial encounter (principal); X58.XXXA Exposure to other specified factors, initial encounter; Z79.899 Other long term (current) drug therapy; I25.10 Atherosclerotic heart disease of native coronary artery without angina pectoris; F43.10 Post-traumatic stress disorder, unspecified; E78.5 Hyperlipidemia, unspecified; J45.909 Unspecified asthma, uncomplicated; F17.210 Nicotine dependence, cigarettes, uncomplicated
CPT/HCPCS: 73502; J2704; J7030

== ENCOUNTER 2022-12-01 02:40 | Observation (INO) | payer OTHER ==
[~2022-12-01] VITALS: Ht 172.7 cm; Wt 65.8 kg
[2022-12-01] VITALS (9 sets, daily range): BP systolic 85–139; BP diastolic 53–79
[~2022-12-01 02:40] MED LIST changes: +Acetaminophen650 M1 PO; +DURAMORPH 11 MG/1 M1 SC; +ONDA4ODT MM; +PRAZ1 PO; +TRANSDERM-SCOP1 EA13 TD; +TRAZ50 PO
[2022-12-01 07:21] LABS: BASOPHILS ABSOLUTE AUTO 0.02 K/mm3 (0.00-0.23); BASOPHILS PERCENT AUTO 0 % (0-2); EOSINOPHILS ABSOLUTE AUTO 0.25 K/mm3 (0.00-0.68); EOSINOPHILS PERCENT AUTO 4 % (0-6); Hematocrit 30.6 % (37.0-53.0); Hemoglobin 9.7 g/dL (13.5-17.5); IMMATURE GRAN ABSOLUTE AUTO 0.02 K/mm3 (0.00-0.10); IMMATURE GRAN PERCENT AUTO 0 % (0-1); LYMPHOCYTES ABSOLUTE AUTO 0.92 K/mm3 (0.84-5.20); LYMPHOCYTES PERCENT AUTO 15 % (21-46); MONOCYTES ABSOLUTE AUTO 0.46 K/mm3 (0.16-1.47); MONOCYTES PERCENT AUTO 8 % (4-13); Mean Corpuscular HGB 28.2 pg (26.0-34.0); Mean Corpuscular HGB Conc 31.7 g/dL (31.5-36.5); Mean Corpuscular Volume 89 fL (80-100); Mean Platelet Volume 10.3 fL (9.1-12.4); NEUTROPHILS PERCENT AUTO 73 % (41-73); Platelet Count 199 K/mm3 (150-400); RDW Coefficient Variation 15.6 % (11.7-14.2); RDW Standard Deviation 50.8 fL (35.1-46.3); Red Blood Cell Count 3.44 M/mm3 (4.30-5.90); White Blood Cell Count 6.07 K/mm3 (4.00-11.30)
[2022-12-01 07:39] LABS: Albumin, Blood 2.3 g/dL (3.4-5.0); Albumin/Globulin Ratio 0.5 (0.8-1.8); Bilirubin, Total 0.2 mg/dL (0.1-1.0); Bun/Creatinine Ratio 32.4 (12.0-20.0); Calcium, Blood 8.7 mg/dL (8.5-10.1); Creatinine, Blood 0.59 mg/dL (0.60-1.20); Globulin, Blood 4.3 g/dL (2.2-4.0); Potassium, Blood 3.9 mmol/L (3.5-5.5); Total Protein, Blood 6.6 g/dL (6.4-8.2)
--- NOTE | 2022-12-01 13:11 | NUR ---
Discharge instructions reviewed with patient. Patient verbalizes some understanding, limited due to dementia diagnosis. Discharge instructioned reviewed with [facility]. Additional orders for [facility] from [facility] provided to [facility] PROSTHETICS LAB TECHNICIAN. Patient discharged via gurdowning by [facility], as arranged by CT. Patient calm & cooperative throughout discharge. Patient tolerated po intake, continued to deny pain, nausea or further discomforts. Patient belongings went with patient, necklace placed back on patient. PROSTHETICS LAB TECHNICIAN & patient both acknowledged.
== END 2022-12-01 13:11 | disposition home or self-care (01) ==
LOC: ER 02:40 → SURS 02:41 → EOR 02:41 → ER 02:41 → EOR 02:41 → SURS 13:11
PROVIDERS: Orthopaedic Surgery; Student in an Organized Health Care Education/Training Program; ADMIT Family Medicine
PROC: 0SWBXJZ Revision of Synthetic Substitute in Left Hip Joint, External Approach (ICD-10-PCS; principal; 2022-12-01 10:30)
DX: T84.021A Dislocation of internal left hip prosthesis, initial encounter (principal); I25.10 Atherosclerotic heart disease of native coronary artery without angina pectoris; F43.10 Post-traumatic stress disorder, unspecified; E78.5 Hyperlipidemia, unspecified; I10 Essential (primary) hypertension; J45.909 Unspecified asthma, uncomplicated; E11.9 Type 2 diabetes mellitus without complications; F17.210 Nicotine dependence, cigarettes, uncomplicated; F11.20 Opioid dependence, uncomplicated; M19.90 Unspecified osteoarthritis, unspecified site; F03.90 Unspecified dementia, unspecified severity, without behavioral disturbance, psychotic disturbance, mood disturbance, and anxiety; S09.90XA Unspecified injury of head, initial encounter; W19.XXXA Unspecified fall, initial encounter; Z66 Do not resuscitate; Z79.899 Other long term (current) drug therapy; Z95.1 Presence of aortocoronary bypass graft; Z95.810 Presence of automatic (implantable) cardiac defibrillator; Y92.129 Unspecified place in nursing home as the place of occurrence of the external cause
CPT/HCPCS: 27266; 70450; 72170; 73502; 80053; 82947; 85025; 90471; 90714; 93005; 93010; 96374-59; 96376-59; 99285-25; A9270; J2370; J2704; J3010; J7030; J7120